=== PATIENT | female | born 1965 | race Caucasian/White ===

== ENCOUNTER → 2017-03-24 | Outpatient (CLI) | payer OTHER | LOC: FIMAGING 15:37 | PROVIDERS: ATTEND Physician Assistant | DX: M79.661 Pain in right lower leg (principal); M79.662 Pain in left lower leg; R60.1 Generalized edema ==

== ENCOUNTER 2017-06-28 16:43 | Emergency (ER) | payer OTHER ==
--- NOTE | 2017-06-28 16:50 | EDPHY ---
H & P Stated Complaint: right sided pain and cramping Source: Patient, Family, EMS Exam Limitations: No limitations HPI/ROS: CHIEF COMPLAINT: Right-sided pain and cramps HISTORY OF PRESENT ILLNESS: Patient complains of right-sided pain and cramping. Today's episode started around noon. This was the 4th episode since a surgery on March 04, 2017. She describes it as an epigastric pain that then radiates to the right side of the abdomen and down the entire leg. It then radiates up to the arm. It is described as a seizure type of activity for her. Moderate to severe. Worse with movement. The only thing that has helped this in the past as Klonopin. She took 6 mg oral Klonopin, as she does frequently for this. She was then administered 2 mg of Ativan IV in route to the ED. Symptoms have minimally improved. She has no chest pain but she does associate this with shortness of breath due to diaphragm involvement. No fever chills. No headache. No neck pain or stiffness. No slurred speech. No confusion. No other associated complaints or modifying factors. She has an extensive history with complicating factors. She has a known benign a thalamic mass. These episodes have been evaluated by her primary care physician no definitive diagnosis. She is concerned that these are seizures. She contacted her physician Dr. Lozada, and she instructed her to come to the emergency department. She arrives by EMS and is seen at time of arrival Neurosurgeon is Dr. Isael Casey. Neurologist Dr. Edwardo Garcia REVIEW OF SYSTEMS: Ten systems reviewed and are negative unless otherwise noted in the HPI PAST MEDICAL HISTORY: Thalamic mass SOCIAL HISTORY: Nonsmoker. No alcohol. Lives here in [place]. No longer work due to disability. FAMILY HISTORY: Noncontributory EXAMINATION General Appearance: Alert, no distress Head: normocephalic, atraumatic Eyes: Pupils equal and round, no conjunctival pallor or injection. EOMs intact. No nystagmus. ENT, Mouth: Mucous membranes moist. Airway patent Neck: Normal inspection, supple, non-tender Respiratory: Lungs are clear to auscultation Cardiovascular: Regular rate and rhythm. No murmur. Pulses intact distally Gastrointestinal: Abdomen is soft and nontender Back: non-tender, no bony abnormalities Neurological: GCS 15. A&O, nonfocal. Strength is at baseline with 5/5 of the left extremities and 4/5 in the right extremities. No pronator drift. No dysmetria. Normal mental status. NIH stroke scale: 0 Skin: Warm and dry, no rash Extremities: Nontender, no pedal edema Psychiatric: Mood and affect normal DIFFERENTIAL DIAGNOSES: Including but not limited to weakness, seizure, muscle spasm, current, dehydration MDM: 4:45 p.m. Right-sided muscular cramps throughout the day. She does have baseline weakness of the right extremities due to her known thalamic mass. No evidence of stroke on examination. Vital signs are within normal limits. The patient expresses that she is concerned that she was having a seizure. I do not appreciate any seizure-like activity. I have ordered laboratory studies and EKG. 5:30 p.m. Laboratory studies thus far are all within normal limits. Symptoms are improving with Ativan. I will consult Neurosurgery and primary care physician. 6:[address] Du has discussed the case with the on-call neurosurgery PA Freya Guo. I discussed the thalamic mass from electronic health records. This has been stable since 2007 with all subsequent MRIs. 7:00 p.m. Patient continues to feel concerned about the symptoms, but I do not appreciate any focal findings. I do not appreciate any seizure-like activity. Do not witness any cramps or abnormal vital signs. The patient will be evaluated by Dr. Du. 8:00 p.m. Patient be discharged home stable condition. She has been evaluated Dr. Du. We are in agreement that there are no focal findings or concerns that would warrant inpatient stay at the hospital at this time. She does have a primary care physician that she can follow up with. She also has neurosurgeon should follow up with. Recommend that she discuss with them the possibility of Neurology follow-up for further care. Return to ER for any stroke-like symptoms. Patient's spouse are comfortable and they are discharged home in stable condition for SUPERVISION: Patient was evaluated in conjunction with the supervising physician. Please see their note for details. (Alexander English) Constitutional: Initial Vital Signs Temperature (C) 98.4 F 06/28/17 16:54 Heart Rate 77 06/28/17 16:54 Respiratory Rate 18 06/28/17 16:54 Blood Pressure 111/78 06/28/17 16:54 O2 Sat (%) 92 06/28/17 16:54 O2 Delivery Mode Room Air Allergies/Adverse Reactions: Latex, Natural Rubber Allergy (Verified 06/28/17 16:54) Penicillins Allergy (Verified 06/28/17 16:54) Medical Decision Making Other Provider: Independent physician exam I evaluated and participated in the management of the patient. I also evaluated the patient independently. My co-signature indicates that I have reviewed this chart and I agree with the findings and plan of care as documented. My personal H&P findings include: The patient presents to the ED with a fairly complicated history of surrounding chronic weakness in her right upper extremity and right lower extremity. I reviewed the patient's past medical records and discussed her workup with our on-call neuro surgical service. The patient presents to the ED with symptoms related to spasticity involving her right upper lower extremity. The patient describes episodes which are not typical for seizure disorder. The patient reports that she has been using clonazepam with some improvement of her symptoms. The patient reportedly is frustrated secondary to the ongoing nature of her symptoms and her inability to get a clear diagnosis. She has had a fairly extensive workup of this condition including MRI testing, EMG testing, reported 24 hour EEG monitoring and has seen multiple consultants. The patient is noted to be neurologically intact. At this point time I doubt a neurosurgical emergency. I do feel the patient can follow up with our on-call neurologist for further evaluation. (Ranjith Du) - Data Points Laboratory Results: Laboratory Results 06/28/17 16:58 06/28/17 16:58 06/28/17 06/28/17 06/28/17 16:58 16:58 16:58 WBC 6.21 10^3/uL 10^3/uL (3.80-9.50) RBC 4.57 10^6/uL 10^6/uL (4.18-5.33) Hgb 13.9 g/dL g/dL (12.6-16.3) Hct 40.8 % % (38.0-47.0) MCV 89.3 fL fL (81.5-99.8) MCH 30.4 pg pg (27.9-34.1) MCHC 34.1 g/dL g/dL (32.4-36.7) RDW 12.5 % % (11.5-15.2) Plt Count 345 10^3/uL 10^3/uL (150-400) MPV 8.6 fL L fL (8.7-11.7) Neut % (Auto) 47.8 % % (39.3-74.2) Lymph % (Auto) 38.8 % % (15.0-45.0) Andrew % (Auto) 8.2 % % (4.5-13.0) Eos % (Auto) 3.5 % % (0.6-7.6) Baso % (Auto) 1.4 % % (0.3-1.7) Nucleat RBC Rel Count 0.0 % % (0.0-0.2) Absolute Neuts (auto) 2.96 10^3/uL 10^3/uL (1.70-6.50) Absolute Lymphs (auto) 2.41 10^3/uL 10^3/uL (1.00-3.00) Absolute Monos (auto) 0.51 10^3/uL 10^3/uL (0.30-0.80) Absolute Eos (auto) 0.22 10^3/uL 10^3/uL (0.03-0.40) Absolute Basos (auto) 0.09 10^3/uL 10^3/uL (0.02-0.10) Absolute Nucleated RBC 0.00 10^3/uL 10^3/uL (0-0.01) Immature Gran % 0.3 % % (0.0-1.1) Immature Gran # 0.02 10^3/uL 10^3/uL (0.00-0.10) PT 12.5 SEC SEC (12.0-15.0) INR 0.94 (0.83-1.16) APTT 28.3 SEC SEC (23.0-38.0) Sodium 138 mEq/L mEq/L (134-144) Potassium 4.5 mEq/L mEq/L (3.5-5.2) Chloride 100 mEq/L mEq/L (97-110) Carbon Dioxide 28 mEq/l mEq/l (22-31) Anion Gap 10 mEq/L mEq/L (8-16) BUN 10 mg/dL mg/dL (7-23) Creatinine 0.6 mg/dL mg/dL (0.6-1.0) Estimated GFR > 60 Glucose 87 mg/dL mg/dL (70-100) Calcium 10.1 mg/dL mg/dL (8.5-10.4) Magnesium 2.0 mg/dL mg/dL (1.6-2.3) Total Bilirubin 0.6 mg/dL mg/dL (0.1-1.4) Conjugated Bilirubin 0.3 mg/dL mg/dL (0.0-0.5) Unconjugated Bilirubin 0.3 mg/dL mg/dL (0.0-1.1) AST 31 IU/L IU/L (14-46) ALT 42 IU/L IU/L (9-52) Alkaline Phosphatase 51 IU/L IU/L (38-126) Troponin I NT-Pro-B Natriuret Pep Total Protein 7.5 g/dL g/dL (6.3-8.2) Albumin 4.4 g/dL g/dL (3.5-5.0) Lipase 140 IU/L IU/L (23-300) Prolactin 06/28/17 16:45 WBC RBC Hgb Hct MCV MCH MCHC RDW Plt Count MPV Neut % (Auto) Lymph % (Auto) Andrew % (Auto) Eos % (Auto) Baso % (Auto) Nucleat RBC Rel Count Absolute Neuts (auto) Absolute Lymphs (auto) Absolute Monos (auto) Absolute Eos (auto) Absolute Basos (auto) Absolute Nucleated RBC Immature Gran % Immature Gran # PT INR APTT Sodium Potassium Chloride Carbon Dioxide Anion Gap BUN Creatinine Estimated GFR Glucose Calcium Magnesium Total Bilirubin Conjugated Bilirubin Unconjugated Bilirubin AST ALT Alkaline Phosphatase Troponin I < 0.012 ng/mL ng/mL (0.000-0.034) NT-Pro-B Natriuret Pep 18 pg/mL pg/mL (0-125) Total Protein Albumin Lipase Prolactin 20.2 ng/mL H ng/mL (3.0-18.6) Departure - Departure Disposition: Home, Routine, Self-Care Clinical Impression: Muscular cramp, Spasm, Thalamic mass Condition: Good Instructions: Muscle Spasm (ED) Additional Instructions: 1. Follow up with primary care physician and Neurology for definitive care Referrals: Radha Casey MD [Medical Doctor] - As per Instructions Reanna Lozada DO [Doctor of Osteopathy] - As per Instructions Davey Marinelli MD [Medical Doctor] - As per Instructions
[2017-06-28 17:02] LABS: % IMMATURE GRANULYOCYTES 0.3 % (0.0-1.1); ABSOLUTE IMMATURE GRANULOCYTES 0.02 10^3/uL (0.00-0.10); ADD DIFF? NO; ADD MORPH? NO; ADD SCAN? NO; ATYPICAL LYMPHOCYTE FLAG 0 (0-99); FRAGMENT RBC FLAG 0 (0-99); HEMATOCRIT 40.8 % (38.0-47.0); HEMOGLOBIN 13.9 g/dL (12.6-16.3); LEFT SHIFT FLG 0 (0-99); LIPEMIA HEMOLYSIS FLAG 90 (0-99); MEAN CELL HEMOGLOBIN 30.4 pg (27.9-34.1); MEAN CELL HEMOGLOBIN CONCENTR. 34.1 g/dL (32.4-36.7); MEAN CELL VOLUME 89.3 fL (81.5-99.8); MEAN PLATELET VOLUME 8.6 fL (8.7-11.7); PLATELET CLUMPS FLAG 0 (0-99); PLATELET COUNT 345 10^3/uL (150-400); RED BLOOD CELL COUNT 4.57 10^6/uL (4.18-5.33); RED CELL DISTRIBUTION WIDTH 12.5 % (11.5-15.2)
[2017-06-28 17:13] LABS: INR 0.94 (0.83-1.16); PROTIME(PATIENT) 12.5 SEC (12.0-15.0)
[2017-06-28 17:14] LABS: ALANINE AMINOTRANSFERASE 42 IU/L (9-52); ALBUMIN 4.4 g/dL (3.5-5.0); ALKALINE PHOSPHATASE 51 IU/L (38-126); ANION GAP 10 mEq/L (8-16); APTT 28.3 SEC (23.0-38.0); ASPARTATE AMINOTRANSFERASE 31 IU/L (14-46); BILIRUBIN,TOTAL 0.6 mg/dL (0.1-1.4); BILIRUBIN-CONJUGATED 0.3 mg/dL (0.0-0.5); BILIRUBIN-UNCONJUGATED 0.3 mg/dL (0.0-1.1); CALCIUM 10.1 mg/dL (8.5-10.4); CARBON DIOXIDE 28 mEq/l (22-31); CHLORIDE 100 mEq/L (97-110); CREATININE 0.6 mg/dL (0.6-1.0); GLOMERULAR FILTRATION RATE > 60; GLUCOSE 87 mg/dL (70-100); POTASSIUM 4.5 mEq/L (3.5-5.2); SODIUM 138 mEq/L (134-144); TOTAL PROTEIN 7.5 g/dL (6.3-8.2)
[2017-06-28 17:43] LABS: TROPONIN I < 0.012 ng/mL (0.000-0.034)
[2017-06-28 17:48] LABS: PROLACTIN 20.2 ng/mL (3.0-18.6)
--- NOTE | 2017-06-28 18:16 | CPEKG ---
Heart Rate: 65 RR Interval: 923 P-R Interval: 160 QRSD Interval: 90 QT Interval: 416 QTC Interval: 433 P Oneill: 1 QRS Oneill: 33 T Wave Oneill: 67 EKG Severity - BORDERLINE ECG - EKG Impression: SINUS RHYTHM EKG Impression: BORDERLINE T ABNORMALITIES, ANT-LAT LEADS Electronically Signed By: Ezio Amezquita 29-Jun-2017 14:54:24
[2017-06-28 19:46] VITALS: BP 102/70; PULSE 61; RESP 18; TEMP 98.2; O2SAT 96
== END 2017-06-28 19:45 | disposition home or self-care (01) ==
LOC: EDUNIT#
DX: M62.838 Other muscle spasm (principal); G93.9 Disorder of brain, unspecified; Z91.040 Latex allergy status

== ENCOUNTER → 2017-10-13 | Outpatient (CLI) | payer OTHER | LOC: CIMAGING 14:12 | DX: M25.512 Pain in left shoulder (principal); M12.9 Arthropathy, unspecified | CPT/HCPCS: 73030-PO ==

== ENCOUNTER 2017-10-26 14:03 | Day surgery (SDC) | payer OTHER ==
--- NOTE | 2017-10-25 17:56 | GHP ---
[f rep st] HISTORY AND PHYSICAL Amended report CURRENT COMPLAINT: Right shoulder stiffness. HISTORY OF PRESENT ILLNESS: The patient is here for manipulation under anesthesia for right shoulder. She has had multiple surgeries and multiple issues. She continues to have stiffness and would like manipulation in order to speed up the process. ALLERGIES: Current allergies include penicillin and latex. CURRENT MEDICATIONS: Include acyclovir, clonazepam, diclofenac, duloxetine, Vicodin, tizanidine and tramadol. CURRENT MEDICAL PROBLEMS: Include cancer and metal allergies. PRIOR SURGERY: Includes shoulder surgery x2, DeQuervain's release, elbow. Cervical spine. Bilateral mastectomy. SOCIAL HISTORY: She has never been a smoker and she is a social drinker. PHYSICAL EXAMINATION: The patient has 90 degrees of forward flexion, 45 degrees of external rotation, internal rotation to her hip. ASSESSMENT AND PLAN: Patient is status post right shoulder fibrosis. Plan is to take her to the operating room to undergo manipulation under anesthesia. /[id number]/MODL Add acc#, shima WT, 10/26/17/ donna HERNANDEZ
--- NOTE | 2017-10-26 07:16 | PDHPUP ---
History & Physical Update H&P update statement: This history and physical update is based on an assessment of the patient which was completed after admission or registration (within 24 hours), but prior to the surgery/procedure. H&P update: H&P reviewed & patient examined, no change in patient's condition since H&P completed
[2017-10-26] MEDS ORDERED: LR 1,000 ML IV ONE (14:30)
--- NOTE | 2017-10-26 16:31 | PDANEPAE ---
ANE History of Present Illness 52 yo for shoulder manipulation ANE Past Medical History - Cardiovascular History Hx Hypertension: No Hx Arrhythmias: No Hx Chest Pain: No Hx Coronary Artery / Peripheral Vascular Disease: No Hx CHF / Valvular Disease: No Hx Palpitations: No Cardiovascular History Comment: BP runs low 100/60 average - Pulmonary History Hx COPD: No Hx Asthma/Reactive Airway Disease: No Hx Recent Upper Respiratory Infection: No Hx Oxygen in Use at Home: No Hx Sleep Apnea: No Sleep Apnea Screening Result - Last Documented: Negative - Neurologic History Hx Cerebrovascular Accident: No Hx Seizures: No Hx Dementia: No Neurologic History Comment: brain tumor - Endocrine History Hx Diabetes: No - Renal History Hx Renal Disorders: No - Liver History Hx Hepatic Disorders: No - Neurological & Psychiatric Hx Hx Neurological and Psychiatric Disorders: Yes Neurological / Psychiatric History Comment: brain tumor - Cancer History Hx Cancer: Yes Cancer History Comment: breast - Congenital Disorder History Hx Congenital Disorders: Yes Congenital History Comment: brain tumor - GI History Hx Gastrointestinal Disorders: Yes Gastrointestinal History Comment: reflux - Other Health History Other Health History: none - Chronic Pain History Chronic Pain: Yes (lower back) - Surgical History Prior Surgeries: shoulder sx x 3 01 aug 2015. redo 2015, 2017 bicep tendon. abdominoplasty. mastectomy bilat ANE Review of Systems Review of Systems: - Exercise capacity METS (RN): 4 METS ANE Patient History - Allergies Allergies/Adverse Reactions: valerian Allergy (Severe, Verified 10/26/17 14:39) Anaphylaxis Latex, Natural Rubber Allergy (Intermediate, Verified 10/20/17 17:15) Rash topiramate Allergy (Intermediate, Verified 10/26/17 14:40) Loss of consciousness Penicillins Allergy (Mild, Verified 10/20/17 17:15) Rash metoprolol [From Lopressor] Allergy (Unknown, Verified 10/26/17 14:40) - Home Medications Home medications: home medication list seen and reviewed Home Medications: Clonazepam 10/20/17 [Last Taken 10/25/17 21:00] Cymbalta 10/20/17 [Last Taken 10/25/17 21:00] Hydrocodone-Acetamin 5-325 mg 10/20/17 [Last Taken 10/26/17 06:00] Tizanidine HCl 10/20/17 [Last Taken 10/25/17 21:00] - NPO status NPO Status: no food or drink >8 hours NPO Since - Liquids (Date): 10/26/17 NPO Since - Liquids (Time): 10:00 NPO Since - Solids (Date): 10/25/17 NPO Since - Solids (Time): 22:00 - Anes Hx Anes Hx: slow to awaken from anesthesia - Smoking Hx Smoking Status: Never smoked - Family Anes Hx Family Hx Anesthesia Complications: none ANE Labs/Vital Signs - Vital Signs Blood Pressure: 122/68 Heart Rate: 59 Respiratory Rate: 16 O2 Sat (%): 96 Height: 5 ft 5 in Weight: 65.771 kg ANE Physical Exam - Airway Neck exam: FROM Mallampati Score: Class 2 - Pulmonary Pulmonary: no respiratory distress - Cardiovascular Cardiovascular: regular rate and rhythym - ASA Status ASA Status: II ANE Anesthesia Plan Anesthesia Plan: GA w LMA
[2017-10-26] MEDS ORDERED: MIDAZOLAM 2 MG/2 ML VIAL IVP ONE (16:34)
[2017-10-26] MEDS ORDERED: fentaNYL 100 MCG/2 ML INJ ONE (17:03)
[2017-10-26] MEDS ORDERED: PROPOFOL/EMULSION 500 MG/50 ML BOTTLE IV ONE (17:03)
[2017-10-26] MEDS ORDERED: ACETAMINOPHEN 325 MG TAB PO PRN (17:50)
[2017-10-26] MEDS ORDERED: OXYCODONE/APAP 5/325 TAB PO PRN (17:50)
--- NOTE | 2017-10-26 17:50 | POSTOPPROG ---
Post Op Note Date of Operation: 10/26/17 Surgeon: Shelia Grant Anesthesiologist: prasad Anesthesia: LMA Pre-op Diagnosis: r shoulder fibrosis Procedure: r shoulder stephon Inf/Abcess present in the surg proc area at time of surgery?: No
[2017-10-26] MEDS ORDERED: KETOROLAC 15 MG/1 ML SDV IVP SCH (18:00)
[2017-10-26] MEDS ORDERED: NALOXONE HCL 0.4 MG/ML INJ IVP PRN (18:15)
[2017-10-26] MEDS ORDERED: fentaNYL 100 MCG/2 ML INJ IVP PRN (18:15)
[2017-10-26] MEDS ORDERED: ONDANSETRON 4 MG/2 ML VIAL IVP PRN (18:15)
--- NOTE | 2017-10-26 18:17 | POSTANESTH ---
Post Anesthetic Evaluation Cardiovascular Status: Normal, Stable Respiratory Status: Normal, Stable Level of Consciousness/Mental Status: Can Participate in Eval Pain Control: Adequate, Prn Tx Ordered Nausea/Vomiting Control: Adequate, Prn Tx Ordered Complications Possibly Related to Anesthesia: None Noted
[2017-10-26 18:35] VITALS: BP 106/27
--- NOTE | 2017-10-26 18:35 | GOP ---
[f rep st] OPERATIVE REPORT DATE OF OPERATION: 10/26/2017 SURGEON: Shelia Grant MD ANESTHESIA: LMA. PREOPERATIVE DIAGNOSIS: Right shoulder fibrosis. POSTOPERATIVE DIAGNOSIS: Right shoulder fibrosis. PROCEDURE PERFORMED: Right shoulder manipulation under anesthesia. . FINDINGS: INDICATIONS: This is a 52-year-old female with a complicated surgical and physical therapy history f or her right shoulder. She has developed stiffness into the right shoulder to the point she was unab le to flex past 90 degrees and externally rotate past 30 degrees. She wishes to have manipulation in order to resolve the problem. DESCRIPTION OF PROCEDURE: The patient was brought to the operating room after the right side had bee n identified as the correct side by the patient, nurse and physician. Once in the operating room, sh aruna had a scalene block placed on the right side, then placed under general anesthesia using LMA. Once asleep, the shoulder was easily manipulated into full flexion, external rotation, internal rotation. Pictures were taken with the patient's cell phone, showing her arm in full flexion as well as exter nal rotation to 90 degrees and then abduction of the shoulder to 90 degrees with external rotation pa st 90 degrees, and internal rotation to 90 degrees. Pictures were taken of each of these positions, both for the edification of physical therapy and for the patient. Once completed, the patient was wo adama up, extubated, and sent to recovery room in good condition. /[id number]/MODL
[2017-10-26 18:44] VITALS: PULSE 67; RESP 18; TEMP 208.4; O2SAT 95
== END 2017-10-26 18:40 | disposition home or self-care (01) ==
LOC: FSGY 14:03
PROVIDERS: ATTEND Orthopaedic Surgery
PROC: 0RNJXZZ Release Right Shoulder Joint, External Approach (ICD-10-PCS; principal; 2017-10-26 16:45)
DX: M75.41 Impingement syndrome of right shoulder (principal)
CPT/HCPCS: J2250; J2704; J3010